=== PATIENT | female | born 1940 | race Caucasian/White ===

== ENCOUNTER → 2023-06-12 12:24 | Outpatient (REF) | payer MEDICARE, OTHER, SELFPAY | LOC: HWRAD 12:24 | PROVIDERS: ATTENDING PHYSICIAN Internal Medicine | DX: M25.551 Pain in right hip (principal) | CPT/HCPCS: 73502 ==

== ENCOUNTER → 2023-06-13 16:03 | Outpatient (REF) | payer MEDICARE, OTHER, SELFPAY ==
[2023-06-13 16:25] LABS: % Basophils 0.9 % (0-2); % Eosinophils 5.9 % (0-6); % Immature Granulocytes 0.2 % (0-0.5); % Lymphocytes 45.6 % (20.5-51.1); % Monocytes 7.3 % (1.7-9.3); % Neutrophils 40.1 % (42.2-75.2); Absolute Basophils 0.1 10^3/uL (0-0.2); Absolute Eosinophils 0.4 10^3/uL (0-0.7); Absolute Monocytes 0.5 10^3/uL (0.1-0.6); Absolute Neutrophils 2.6 10^3/uL (1.4-6.5); Hematocrit 33.6 % (37.0-47.0); Hemoglobin 11.1 g/dL (12.0-16.0); Mean Corpuscular Hgb 31.5 pg (27.0-31.0); Mean Corpuscular Volume 95.5 fL (81.0-99.0); Nucleated Red Blood Cells % 0 %; Platelet Count 338 10^3/uL (130-400); Red Blood Cell Count 3.52 10^6/uL (4.20-5.40); Red Cell Dist. Width 14.9 % (11.5-14.5); White Blood Cell Count 6.5 10^3/uL (4.8-10.8)
[2023-06-13 16:29] LABS: ALT (SGPT) 13 U/L (0-35); AST (SGOT) 21 U/L (14-36); Alkaline Phosphatase 83 U/L (38-126); Blood Urea Nitrogen 24 mg/dl (7-17); Calcium 9.2 mg/dl (8.4-10.2); Carbon Dioxide 27 mmol/L (22-30); Chloride 101 mmol/L (98-107); Glucose 89 mg/dl (70-99); HDL Cholesterol 52 mg/dl; LDL Cholesterol, Calculated 125 mg/dl; Potassium 5.7 mmol/L (3.5-5.1); Sodium 133 mmol/L (135-145); Total Bilirubin 0.3 mg/dl (0.2-1.3); Total Cholesterol 227 mg/dl (50-199); Triglyceride 250 mg/dl (10-149); Very Low Density Lipoprotein 50 mg/dl (0-30); eGFR 49.55
[2023-06-13 16:59] LABS: TSH 1.94 uIU/ml (0.47-4.68)
== END ==
LOC: CLAB 16:03
PROVIDERS: ATTENDING PHYSICIAN Internal Medicine
DX: E11.9 Type 2 diabetes mellitus without complications (principal); R53.81 Other malaise; R53.83 Other fatigue
CPT/HCPCS: 80053; 80061; 83036; 84443; 85025

== ENCOUNTER → 2023-07-23 14:52 | Outpatient (REF) | payer MEDICARE, OTHER, SELFPAY ==
[2023-07-23 15:51] LABS: Urine Albumin Negative (Neg - Trace); Urine Bilirubin Negative (Negative); Urine Character Clear (Clear); Urine Color Yellow; Urine Glucose Negative (Negative); Urine Ketone Negative (Negative); Urine Leukocyte 1+ (Negative); Urine Nitrite Negative (Negative); Urine Occult Blood Negative (Negative); Urine Urobilinogen Negative (Neg - 1+)
[2023-07-23 16:20] LABS: Urine Red Blood Cell 0-2 /HPF (0-2); Urine White Cell 16-20 /HPF (0-5)
== END ==
LOC: OLABHEARBC 14:52
PROVIDERS: ATTENDING PHYSICIAN Internal Medicine
DX: N39.0 Urinary tract infection, site not specified (principal)
CPT/HCPCS: 81003; 81015; 87086

== ENCOUNTER 2024-04-05 16:52 | Emergency (ER) | payer MEDICARE, OTHER, SELFPAY ==
[2024-04-05 17:02] VITALS: BP 124/86
[2024-04-05 17:26] LABS: % Basophils 0.3 % (0-2); % Immature Granulocytes 0.4 % (0-0.5); % Monocytes 2.6 % (1.7-9.3); % Neutrophils 92.7 % (42.2-75.2); Absolute Eosinophils 0.1 10^3/uL (0-0.7); Absolute Immature Granulocytes 0.1 10^3/uL (0-0.05); Absolute Lymphocytes 0.4 10^3/uL (1.2-3.4); Absolute Monocytes 0.3 10^3/uL (0.1-0.6); Absolute Neutrophils 10.9 10^3/uL (1.4-6.5); Hematocrit 37.9 % (37.0-47.0); Hemoglobin 12.6 g/dL (12.0-16.0); Mean Corp Hgb Conc. 33.2 g/dL (33.0-37.0); Mean Corpuscular Hgb 33.1 pg (27.0-31.0); Mean Corpuscular Volume 99.5 fL (81.0-99.0); Mean Platelet Volume 8.6 fL (7.4-10.4); Nucleated Red Blood Cells % 0 %; Platelet Count 313 10^3/uL (130-400); Red Blood Cell Count 3.81 10^6/uL (4.20-5.40); White Blood Cell Count 11.8 10^3/uL (4.8-10.8)
--- NOTE | 2024-04-05 17:47 | ED.GENMED ---
History of Present Illness
General
Chief Complaint: Abdominal Symptoms
Source: patient
Exam Limitations: none
Time Seen by Provider: 04/05/24 17:32
History of Present Illness
History of Present Illness:
84yoF with a history of hypertension, GERD, COPD, and remote history of breast cancer presenting for evaluation of vomiting and diarrhea. Patient has been sick for the past 3 days or so. She was initially nauseous and having some intermittent
vomiting. Symptoms worsened today. She is having profuse diarrhea and had about 20 episodes of watery stool today. She has vomited about 6 times today and has been unable to tolerate any p.o. intake. She also is having abdominal pain. She
initially had some lower abdominal pain yesterday but pain is currently in the upper abdomen. She states this is the second that she is ever felt in her life. Her friend was hospitalized with norovirus about 2 weeks ago and she believes she has
this. She denies any fevers, hematemesis, hematochezia, chest pain, shortness of breath.
Past History
Past History
ED Past Medical History: Cancer (Breast CA), COPD, GERD, HTN and Other (IBS, UTI, TIA)
ED Past Surgical History: Cholecystectomy, Gynecological (Hysterectomy, Lumpectomy), Orthopedic (Left hip surgery), Urological (Kidney surgery) and Other (cataracts)
Social History
Tobacco: Former smoker
Alcohol: Daily (Wine 2-3 glasses)
Personal:
Living: alone
Phy Exam
General Physical Exam
General Presentation: well appearing and no apparent distress
General age: appears stated age
General Skin: warm and dry
General Habitus: normal
General Mental: alert
ENT Exam
ENT Exam: normocephalic
Cardiovascular Exam
Cardiovascular Exam: regular rate/rhythm
Pulmonary Exam
Pulmonary Exam: lungs clear, no respiratory distress, no rales, no crackles and no rhonchi
Gastrointestinal Exam
Gastrointestinal Exam: soft, non distended and other (Generalized abdominal tenderness. Abdomen soft, nondistended. No rebound or guarding.)
Neurological Exam
Neurological Exam: alert
Mil[place]ay Coma Scale
Eye Opening: Spontaneous
Verbal Response: Oriented
Motor Response: Obeys Commands
GCS Total Score: 15
Skin Exam
Skin Exam: normal color and warm/dry
Psychiatric Exam
Psychiatric Exam: normal mood/affect
Course
Orders/Labs/Results
Orders:
Orders
04/05/24 17:18
Complete Blood Count/With Diff Urgent
Comprehensive Metabolic Panel Urgent
Lipase Urgent
Comment: ADD ON
04/05/24 17:43
Add On- LAB Urgent
Tests Added?: lipase
Electrocardiogram (*1) Urgent
Reason for Study: Abdominal Pain
EKG- Treatment ONCE
0.9% Sodium Chloride 1000 ml [Nss] 1,000 ml IV BOLUS
Ondansetron Injectable [Zofran] 4 mg IV NOW STA
04/05/24 17:44
CT Abd/pelvis W Iv Cont Urgent
Comment:
Reason For Exam: Generalized abd pain, vomiting, diarrhea
04/05/24 18:21
COVID-19 Antigen Urgent
Source: Nasal Swab
Influenza A+B Rapid Molecular Urgent
MARLEN Source: Nasal Swab
Specimen Description:
04/05/24 20:22
CDIFF [C difficile Antigen & Toxins] Urgent
MARLEN Source: Feces/Stool
Specimen Description:
Date Specimen was Collected: 04/05/24
Time Specimen was Collected: 20:15
Norovirus by PCR Urgent
MARLEN Source: Feces/Stool
Specimen Description:
Date Specimen was Collected: 04/05/24
Time Specimen was Collected: 20:15
Stool Culture Urgent
MARLEN Source: Feces/Stool
Specimen Description:
Date Specimen was Collected: 04/05/24
Time Specimen was Collected: 20:15
Abnormal Lab Results
04/05/24
17:18
WBC 11.8 H 10^3/uL
(4.8-10.8)
RBC 3.81 L 10^6/uL
(4.20-5.40)
MCV 99.5 H fL
(81.0-99.0)
MCH 33.1 H pg
(27.0-31.0)
Abs Immat Gran (auto) 0.1 H 10^3/uL
(0-0.05)
Absolute Neuts (auto) 10.9 H 10^3/uL
(1.4-6.5)
Absolute Lymphs (auto) 0.4 L 10^3/uL
(1.2-3.4)
Neutrophils % 92.7 H %
(42.2-75.2)
Lymphocytes % 3.0 L %
(20.5-51.1)
Carbon Dioxide 17 L mmol/L
(22-30)
BUN 18 H mg/dl
(7-17)
Glucose 126 H mg/dl
(70-99)
Total Protein 8.4 H g/dl
(6.3-8.2)
04/05/24 17:18
04/05/24 17:18
Vital Signs
Initial and Last Documented VS:
Initial Vital Signs
Temp Pulse Resp BP Pulse Ox
98.0 F 107 16 124/86 98
04/05/24 17:02 04/05/24 17:02 04/05/24 17:02 04/05/24 17:02 04/05/24 17:02
Last Documented Vital Signs
Temp Pulse Resp BP Pulse Ox
98.0 F 107 16 124/86 98
04/05/24 17:02 04/05/24 17:02 04/05/24 17:02 04/05/24 17:02 04/05/24 17:02
MDM/Problems Addressed
Differential Diagnosis Includes:
84yoF here with n/v/d. Believes she has the norovirus. Also having some abdominal pain. No f/c. Heart rate 107. Remainder of vital signs are normal. She is acutely nontoxic appearing. No signs of peritonitis on abdominal exam. Differential
diagnosis includes but is not limited to: Viral gastroenteritis, C. difficile, colitis, diverticulitis, dehydration
Initial ED plan: Check abdominal labs, EKG, COVID/flu swab, stool testing, and CT abdomen. IV Zofran and fluid bolus for symptoms.
*EKG
Interpreted by ED Provider?: Yes
EKG Intrepretation Date: 04/05/24
Heart Rate: 94
Rate: normal
Rhythm: sinus
[place]: left axis deviation
Interval: normal interval
QRS Pattern: normal QRS
Ischemia: no ischemia
*Critical Care Note
Total Time (30-74mins, 75-104mins- exclusive of procedures): Not Applicable
Update Note
Update Note:
Labs reveal a mild leukocytosis with a white count of 11.8. Electrolytes within normal limits. Bicarb 17 which is likely secondary to diarrhea. Creatinine normal at 1.0. COVID/flu swab negative. CT abdomen shows evidence of an acute diarrheal
illness. 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 Findings discussed with patient. 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
iatrogenic injury to the kidney during a colonoscopy many years ago. Stool studies sent and are pending. No further episodes of vomiting after IV Zofran given and patient able to tolerate p.o. intake. No indication for hospitalization at this
time. Supportive care discussed. She is currently in independent living and is scheduled to see the nurse practitioner tomorrow morning so will have close follow-up. ED return precautions discussed. Patient in agreement with plan and was
discharged in stable condition.
ED Attending Note
-
Portions of this chart may have been created with voice recognition software.� Occasional wrong word or��sound alike� substitutions may have occurred due to the inherent limitations of voice recognition software.
Discharge Plan
Departure
Patient Disposition: Home (Routine Discharge)
Date of Disposition: 04/05/24
Time of Disposition: 21:33
Patient with high blood pressure during this ER visit?: No
Discharge Problem:
Nausea, vomiting, and diarrhea
Instructions: Acute Diarrhea
Prescriptions:
No Action
citalopram 10 mg tablet
10 mg PO DAILY
therapeutic multivitamin Tablet
1 tab PO DAILY
magnesium oxide 500 mg Tablet
500 mg PO DAILY Qty: 0 0RF
docusate sodium 100 mg Capsule
100 mg PO BID Qty: 0 0RF
aspirin 81 mg Tablet,Delayed Release (Dr/Ec)
81 mg PO DAILY Qty: 0 0RF
losartan 25 mg Tablet
25 mg PO DAILY Qty: 30 0RF
sennosides [Senna Lax] 8.6 mg Tablet
17.2 mg PO BID 30 Days Qty: 120 0RF
thiamine HCl (vitamin B1) 100 mg Tablet
100 mg PO DAILY 30 Days Qty: 30 0RF
acetaminophen [Pain Relief ES (acetaminophen)] 500 mg Tablet
1,000 mg PO DAILY@1300 Qty: 90 0RF
pantoprazole 40 mg Tablet,Delayed Release (Dr/Ec)
40 mg PO DAILY 30 Days Qty: 30 0RF
loratadine 10 mg Tablet
10 mg PO DAILY Qty: 30 0RF
lidocaine 4 % Adhesive Patch,Medicated
1 patch topical DAILY 30 Days Qty: 30 0RF
oxycodone 5 mg Tablet
5 mg PO Q4HPRN PRN (Reason: moderate pain) 5 Days Qty: 30 0RF
Referrals:
Kandi Caldwell, DO [Family Provider] -
Activity Restrictions/Additional Instructions:
We will call you if your stool tests come back positive.
Continue taking Zofran as needed for nausea. Drink plenty of fluids. Eat a bland diet (bananas, rice, applesauce, and toast).
Please follow-up with your nurse practitioner tomorrow as previously scheduled. Return to the ER immediately with any new or worsening symptoms or if you are unable to keep down fluids.
Interventions
Interventions:
*Risk Screen - Suicide Last Done: 04/05/24 17:02
*Neglect/Abuse Screening Last Done: 04/05/24 17:02
EG-Meekjw-Uwwgjuyyne Assessment Last Done: 04/05/24 18:27
Discharge Date and Time
Print Language: [id number]
[2024-04-05 17:48] LABS: ALT (SGPT) 21 U/L (0-35); AST (SGOT) 26 U/L (14-36); Alkaline Phosphatase 82 U/L (38-126); Blood Urea Nitrogen 18 mg/dl (7-17); Carbon Dioxide 17 mmol/L (22-30); Chloride 100 mmol/L (98-107); Glucose 126 mg/dl (70-99); Potassium 4.8 mmol/L (3.5-5.1); Sodium 135 mmol/L (135-145); Total Bilirubin 0.9 mg/dl (0.2-1.3); Total Protein 8.4 g/dl (6.3-8.2); eGFR 55.21
[2024-04-05] MEDS: ZOFRAN 4 MG IV (18:07)
[2024-04-05] MEDS: NSS 1000 IV (18:08)
[2024-04-05 18:48] LABS: Lipase 89 U/L (23-300)
[2024-04-05 19:23] LABS: COVID-19 Antigen Negative (Negative)
[2024-04-05 22:35] VITALS: BP 139/92
== END 2024-04-05 22:40 | disposition home or self-care (01) ==
LOC: EMR 16:52
PROVIDERS: Emergency Medicine; Physician Assistant; EMERGENCY PHYSICIAN Emergency Medicine; FAMILY PHYSICIAN Hospitalist
DX: R11.2 Nausea with vomiting, unspecified (principal); R19.7 Diarrhea, unspecified; I10 Essential (primary) hypertension; K21.9 Gastro-esophageal reflux disease without esophagitis; J44.9 Chronic obstructive pulmonary disease, unspecified; Z87.891 Personal history of nicotine dependence; Z11.52 Encounter for screening for COVID-19
CPT/HCPCS: 99285; 96374; 96361; 74177; 80053; 83690; 85025; 87045; 87046; 87324; 87427; 87449; 87502; 87798; 87811; 93005; Q9967

== ENCOUNTER → 2024-06-15 09:31 | Outpatient (REF) | payer MEDICARE, OTHER, SELFPAY ==
[2024-06-15 10:33] LABS: % Basophils 0.6 % (0-2); % Eosinophils 4.6 % (0-6); % Immature Granulocytes 0.3 % (0-0.5); % Lymphocytes 42.4 % (20.5-51.1); % Monocytes 6.7 % (1.7-9.3); % Neutrophils 45.4 % (42.2-75.2); Absolute Eosinophils 0.3 10^3/uL (0-0.7); Absolute Monocytes 0.5 10^3/uL (0.1-0.6); Absolute Neutrophils 3.2 10^3/uL (1.4-6.5); Hematocrit 35.5 % (37.0-47.0); Mean Corp Hgb Conc. 33.8 g/dL (33.0-37.0); Mean Corpuscular Hgb 33.5 pg (27.0-31.0); Mean Corpuscular Volume 99.2 fL (81.0-99.0); Mean Platelet Volume 9.2 fL (7.4-10.4); Nucleated Red Blood Cells % 0 %; Platelet Count 330 10^3/uL (130-400); Red Blood Cell Count 3.58 10^6/uL (4.20-5.40); Red Cell Dist. Width 13.6 % (11.5-14.5)
[2024-06-15 10:49] LABS: ALT (SGPT) 19 U/L (0-35); AST (SGOT) 24 U/L (14-36); Albumin 4.8 g/dl (3.5-5.0); Alkaline Phosphatase 67 U/L (38-126); Blood Urea Nitrogen 15 mg/dl (7-17); Calcium 9.1 mg/dl (8.4-10.2); Carbon Dioxide 24 mmol/L (22-30); Chloride 103 mmol/L (98-107); Glucose 97 mg/dl (70-99); Magnesium 1.8 mg/dl (1.6-2.3); Potassium 5.1 mmol/L (3.5-5.1); Sodium 138 mmol/L (135-145); Total Bilirubin 0.8 mg/dl (0.2-1.3); Total Protein 7.9 g/dl (6.3-8.2); eGFR 55.21
[2024-06-15 11:34] LABS: Vitamin B12 824 pg/ml (239-931)
== END ==
LOC: OLABHEARBC 09:31
PROVIDERS: ATTENDING PHYSICIAN Hospitalist
DX: I10 Essential (primary) hypertension (principal); G60.9 Hereditary and idiopathic neuropathy, unspecified; M62.81 Muscle weakness (generalized); R11.2 Nausea with vomiting, unspecified; Z79.899 Other long term (current) drug therapy
CPT/HCPCS: 36415; 80053; 82306; 82607; 83735; 84100; 85025

== ENCOUNTER → 2024-09-28 12:23 | Outpatient (REF) | payer MEDICARE, OTHER, SELFPAY ==
[2024-09-28 13:23] LABS: Urine Character Cloudy (Clear)
[2024-09-28 13:53] LABS: Urine White Cell >100 /HPF (0-5)
== END ==
LOC: OLABHEARBC 12:23
PROVIDERS: ATTENDING PHYSICIAN Hospitalist
DX: R30.0 Dysuria (principal)
CPT/HCPCS: 81003; 81015; 87077; 87086; 87186